=== PATIENT | male | born 1990 | race Caucasian/White ===

== ENCOUNTER 2019-08-02 13:42 | Emergency (ER) | payer OTHER, SELFPAY ==
[2019-08-02 14:35] VITALS: BP 132/78; PULSE 118; RESP 18; TEMP 38.8; O2SAT 96
--- NOTE | 2019-08-02 14:50 | ED.GENADULT ---
HPI - General Adult General Chief complaint: Upper Respiratory Infection Stated complaint: Chills/Body aches/Fever Time Seen by Provider: 08/02/19 14:53 Source: patient and RN notes reviewed Mode of arrival: ambulatory Limitations: no limitations History of Present Illness HPI narrative: This patient had onset of a cough which is productive of green phlegm with a fever up to 102 at home today. He is taken Tylenol brings it down but then goes back up again. He is had a sore throat. He is not had any ear pain. Has had no nasal drainage no drainage from the ears. He has had no rashes. Is been no nausea, no vomiting, no diarrhea. He has had no hematuria, no dysuria, no pyuria. He has had no rashes. He has had exposure to his and daughter last week who had strep throat and her treated and now better. He would like to be tested for influenza. He has not been traveling. Related Data Home Medications Medication Instructions Recorded Confirmed albuterol sulfate 90 mcg/actuation 2 puff INHALATION Q4-6H PRN gm 05/21/19 08/02/19 aerosol inhaler Allergies Allergy/AdvReac Type Severity Reaction Status Date / Time Penicillins Allergy Unknown Anaphylaxis Verified 04/24/19 09:56 Review of Systems Review of Systems: Narrative: CONSTITUTIONAL: Denies fever, chills, or sweats. Noncontributory except as pertains to the past medical history and history of present illness. EYES: Denies visual changes, redness, or discharge. ENT: Denies rhinorrhea, congestion, sore throat, or otalgia. CARDIOVASCULAR: Denies chest pain, palpitations, or edema. RESPIRATORY: Denies cough or dyspnea. GASTROINTESTINAL: Denies abdominal pain, nausea, vomiting, or diarrhea. GENITOURINARY: Denies dysuria or hematuria. SKIN: Denies rash or itching. MUSCULOSKELETAL: Denies back pain, joint pain, or myalgia. NEUROLOGIC: Denies headache, numbness, or weakness. PSYCHIATRIC: Denies anxiety or depression. [facility] Family History Family History (Updated 04/23/19 @ 13:28 by DOCTOR UNKNOWN) Mother Patient's mother is in good health Father Patient's father is in good health Grandparent Family history of chronic obstructive pulmonary disease Family history of lung cancer, Onset Age: 78 Family history of malignant neoplasm of breast in first degree relative, Onset Age: 78 Social History Social History Smoking status: Light tobacco smoker Alcohol intake: current Comments At time of signature, I have reviewed and agree with nursing past medical, surgical, social, and family history.Please see nursing chart for further information. There is no relevant family history pertinent to the presenting complaint. Exam Narrative: Exam Narrative: GENERAL: Well-appearing, well-nourished, and in no acute distress. HEAD: Normocephalic, atraumatic. EYES: PERRLA and EOMI. EARS: TM's clear bilaterally and the canals are clear. NOSE: Nares clear, no rhinorrhea or epistaxis. THROAT:Mucous membranes moist.Oropharynx is erythematous with no exudates present. NECK: Supple. No adenopathy of the neck, supraclavicular, axillary, or inguinal areas. RESPIRATORY: No respiratory distress. Airway patent. Respirations non-labored. Patient has rhonchi in the upper and in the midlung salvador but not the bases. There are no wheezes, no rales, no retractions, no use of accessory muscle respirations. Patient's not cyanotic and not dyspneic. Pulse ox on room air is 96% current temperature is 102.1. HEART: Regular rate and rhythm. No murmur heard. Normal peripheral pulses. ABDOMEN: Soft, nontender, nondistended, normal active bowel sounds.No masses. No rebound or guarding, No organomegaly. There is no CVA pain. No pain McBurney's point. The patient has a negative Ferraro sign and negative Rovsing sign. There are no pulsatile masses no audible bruits. EXTREMITIES: No clubbing/cyanosis/ edema.Normal strength & range of motion. SKIN: Warm, dry.Normal color. No skin pema
== END 2019-08-02 15:15 | disposition home or self-care (01) ==
PROVIDERS: Emergency Provider Family Medicine; PCP Physician Assistant
DX: J02.9 Acute pharyngitis, unspecified (principal); F17.200 Nicotine dependence, unspecified, uncomplicated; J45.909 Unspecified asthma, uncomplicated
CPT/HCPCS: 87081; 87804; 87880; 99213; G0463

== ENCOUNTER 2021-07-14 00:34 | Day surgery (SDC) | payer OTHER, SELFPAY ==
--- NOTE | 2021-07-08 15:46 | PM.SD2 ---
Same Day Admit/Disch: HPI History of Present Illness Chief complaint: Incarcerated and Umbilical Hernia Narrative: Marques Delaney is a 31 year old male Who has noticed a bulge at the umbilical area for the last 2 years. He has some mild discomfort associated with this. Occasionally it will protrude more and hurt. This has been happening more frequently especially in the last 3 months. Patient has lost 50 lb since August of 2020. He also has a history of vaping and asthma. He was seen in the office and is taken to surgery now for umbilical hernia repair with mesh. [facility] Past Medical History Medical History Acute viral syndrome Allergic dermatitis due to poison pedro BMI 29.0-29.9,adult Encounter for wellness examination in adult Intermittent palpitations Post-viral cough syndrome Umbilical hernia without obstruction or gangrene Vaping nicotine dependence, non-tobacco product Family History Family History Mother Patient's mother is in good health Father Patient's father is in good health Grandparent Family history of chronic obstructive pulmonary disease Family history of lung cancer, Onset Age: 78 Family history of malignant neoplasm of breast in first degree relative, Onset Age: 78 Social History Social History Years smoked: 1 Smoking status: Former smoker Tobacco type: cigarettes Smoking end date: 07/02/11 Alcohol intake: never Substance use: never Substance use type: does not use Living arrangements: with family Spiritual care concerns: No Same Day Admit/Disch: Med Pre-admit Medications Home Medications Medication Instructions Recorded Confirmed Type albuterol sulfate 90 mcg/actuation 2 puff INHALATION Q4-6H PRN gm 05/21/19 07/14/21 History aerosol inhaler ascorbic acid (vitamin C) [Vitamin 500 mg PO DAILY 07/12/21 07/14/21 History C] cholecalciferol (vitamin D3) 50 mcg PO DAILY 07/12/21 07/14/21 History [Vitamin D3] omeprazole 40 mg PO DAILY 07/12/21 07/14/21 History zinc 50 mg PO DAILY 07/12/21 07/14/21 History hydrocodone-acetaminophen 1 - 2 tablet PO Q6H PRN #20 tablet 07/14/21 Rx ketorolac 10 mg PO Q6H 4 Days #16 tablet 07/14/21 Rx Exam Const: General: comfortable, no acute distress, alert and awake HENMT: Head: normocephalic and atraumatic Mouth: Yes Normal oral and palatal mucosa present Eyes: Conjunctivae: conjunctivae normal Pupils: Equal, round and reactive pupils present EOM: EOMs intact bilaterally Neck: Neck: normal visual inspection, no lymphadenopathy and nontender Resp: Effort & Inspection: normal respiratory effort Auscultation: clear to auscultation bilaterally Cardio: Rate: regular rate Rhythm: regular rhythm Heart sounds: no gallops, no murmurs and no rubs GI: Inspection: non-distended, no scars and visible herniation ( Umbilical, dusky overlying skin) GI Palp: Yes Soft to palpation, Yes Tenderness to palpation present (GI), No Hepatomegaly present, No Splenomegaly present and Yes Hernia present ( chronically incarcerated, Tender when try to reduce) Auscultation: normal bowel sounds Skin: Lesions: no lesions Rashes: no rashes Neuro: General: no focal motor deficits and CN's II-XI intact bilaterally Cranial nerves: Yes Equal, round and reactive pupils present, Yes Bilaterally intact EOM present, Yes facial symmetry and Yes Midline tongue present Speech: normal speech Motor exam (neuro): 5/5 motor strength present throughout and Motor abnormalities not present Extrem: General: no clubbing, cyanosis or edema and edema Psych: Affect: normal affect Thought process: Normal thought process present Insight: Good insight present (Psych) DS: Summary Time Spent with Patient Time attestation: Total time spent providing and/or coordinating discharge services: WERO
[2021-07-12 11:47] VITALS: BMI 31.5
--- NOTE | 2021-07-12 11:55 | PC.NURSE ---
Report to the Outpatient Waiting Room, entrance under the green pavilion located off [facility], at time 1000 on date 07/14/21. OR Time: 1200. - You will be asked a series of questions to screen for COVID 19 for your protection. - A mask is required within the hospital. - No visitors are allowed at this time. Preoperative COVID Testing Requirements: No COVID Test needed if: (proof is required; if not received patient will have Rapid Test prior to entry) - Patient has received COVID Vaccine at least 14 days prior to procedure date or - Patient has positive COVID test result within last 90 days of surgery date. COVID Test needed if above criteria is not met Patients may have clear liquids (water, carbonated beverages, clear teas, apple juice) until 3 hours prior to surgery with a maximum of 20 ounces. - No food from midnight until time of surgery Take the following medications with a SIP of water the morning of surgery: INHALER (IF NEEDED) Medications to discontinue per physician: VITAMINS/SUPPLEMENTS Date to take last dose: NO MORE UNTIL AFTER SURGERY Please no make-up, nail hebrew, hairspray, perfume, deodorant, or body powder the day of surgery. No jewelry (including any body piercings) or valuables the day of surgery, leave them at home. Please take a shower or bath the night before, or the morning of, surgery with an antibacterial soap. Wear comfortable, loose fitting clothing. HIBICLENS SHOWER - Jewelry must be removed prior to entering the operating room. Rings and piercings that are not removed may be cut off. - The hospital will not accept responsibility for valuables. - Please leave all valuables, including medications, at home the day of surgery. If you are going home after surgery, a licensed driver/sales workers must drive you home. - NO public transportation without another adult. - We recommend that an adult stay with you for 24 hours following discharge. - We also recommend that you do not drive, make important decision, drink alcoholic beverages, or take any drugs that were not prescribed by your health care provider for at least 24 hours after your discharge time. Follow any additional instructions given to you from your surgeon. Telephone instructions given to MONA CHURCHILL and asked if any additional questions and then verbalized understanding. Patient advised to call surgeon office or pre surgery nurse liaison [phone] if any additional questions.
--- NOTE | 2021-07-14 10:14 | P.PNAN_ITS ---
Anes - Initial Pre Proc Eval Procedure: Operation Date: 07/14/21 12:00 Proposed Procedures p Incarcerated Umbilical Hernia Repair with Mesh - Ino Alcocer MD Date/Time: 07/14/21 10:14 Surgeon: Ino Alcocer MD Pre Op Diagnosis: Incarcerated and Umbilical Hernia Patient Data Age: 31 Gender: M Height: 1.78 m Weight: 101 kg Allergies Allergy/AdvReac Type Severity Reaction Status Date / Time Penicillins Allergy Severe Anaphylaxis Verified 07/14/21 10:11 Home Medications Medication Instructions Recorded Confirmed Type albuterol sulfate 90 mcg/actuation 2 puff INHALATION Q4-6H PRN gm 05/21/19 07/12/21 History aerosol inhaler ascorbic acid (vitamin C) [Vitamin 500 mg PO DAILY 07/12/21 07/12/21 History C] cholecalciferol (vitamin D3) 50 mcg PO DAILY 07/12/21 07/12/21 History [Vitamin D3] omeprazole 40 mg PO DAILY 07/12/21 07/12/21 History zinc 50 mg PO DAILY 07/12/21 07/12/21 History Patient hx anesthesia problems: none Family hx anesthesia problems: none Results Review: All pre-operative results and documents have been reviewed as part of the pre-operative evaluation. [facility] Past Medical History Medical History Acute viral syndrome Allergic dermatitis due to poison pedro BMI 29.0-29.9,adult Encounter for wellness examination in adult Intermittent palpitations Post-viral cough syndrome Umbilical hernia without obstruction or gangrene Vaping nicotine dependence, non-tobacco product Family History Family History Mother Patient's mother is in good health Father Patient's father is in good health Grandparent Family history of chronic obstructive pulmonary disease Family history of lung cancer, Onset Age: 78 Family history of malignant neoplasm of breast in first degree relative, Onset Age: 78 Social History Social History Years smoked: 1 Smoking status: Former smoker Tobacco type: cigarettes Smoking end date: 07/02/11 Alcohol intake: never Substance use: never Substance use type: does not use Living arrangements: with family Spiritual care concerns: No Anes - Eval Final PreProcedure Day of Procedure 07/14/21 10:14 Patient weight: obese Heart: regular rate and rhythm Lungs: clear to auscultation Airway: Mallampati scale class 1 Neurological: alert and oriented Last oral intake: >/= 8 hours ASA classification: II Emergent: no Anesthetic plan: proceed Anesthesia type and monitoring: general GIVS and standard monitoring Results Review: All pre-operative results and documents have been reviewed as part of the pre-operative evaluation. Informed Consent: The patient's anesthetic plan and its attendant risks and benefits were discussed with the patient/family/POA. Questions were solicited and answers provided to the satisfaction of the patient/family/POA.
[2021-07-14] MEDS: ACETAMINOPHEN 500 MG TABLET 1000 MG PO (10:30)
[2021-07-14] MEDS: LACTATED RINGERS 1,000 ML 30 ML IV CONT (10:30)
[2021-07-14] MEDS: KETOROLAC 15 MG/ML VIAL (*BKC) IV PUSH (10:33)
[2021-07-14 10:42] VITALS: BP 125/82; PULSE 85; RESP 16; TEMP 36.8; O2SAT 97
--- NOTE | 2021-07-14 10:55 | WPDHPUPDATE1 ---
History and Physical Update Update Date/Time: 07/14/21 10:55 History and Physical has been reviewed, including an updated exam of the patient. There are NO changes in the patient's condition. Risks, benefits, and alternatives have been discussed and questions answered. Patient agrees to proceed with procedure.
[2021-07-14] MEDS: ceFAZolin 2 GM/D5W 50 ML 2 GM/50 ML BAG IVPB (12:01)
[2021-07-14] MEDS: BUPIVACAINE HCL 0.5% PF 30 ML VIAL INFILTRATE (12:21)
[2021-07-14 13:33] VITALS: BP 113/70; PULSE 70; RESP 16; O2SAT 100
--- NOTE | 2021-07-14 13:46 | P.OP_ITS ---
Procedure Note - Detailed Date of Procedure 07/14/21 Pre-op Diagnosis Chronically Incarcerated Umbilical Hernia Post-op Diagnosis same Procedure Performed Umbilical hernia repair with 6 cm PV p.m. underlay mesh Surgeon Ino Alcocer MD Gum Remover Kathleen Yu [facility] Anesthesia MAC and local (0.5% Marcaine with epinephrine) Indications Patient has a sizable umbilical bulge which is occasionally painful. He was seen in the office and found to have a chronically incarcerated umbilical hernia. He is taken to surgery now for repair with underlay mesh Findings Omentum chronically incarcerated in the hernia sac. No bowel involvement. Hernia defect was 1.5 cm diameter. Description of Procedure Patient was taken to surgery and IV sedation was administered. The abdomen is prepped and draped. The proposed incision was marked along the lower margin of the umbilicus. Local anesthetic was infiltrated into the area of the anticipated incision and in the deeper subcutaneous tissues. Incision was made dissection was carried down through the skin. The hernia sac was easily seen. It was carefully dissected free from the subcutaneous as well as the umbilical skin. We dissected down around the herniated contents to the neck of the hernia. There was a lot of herniated omentum in the hernia sac relative to the size of the defect. Once the neck of the hernia was well delineated, I divided the hernia sac at its neck and removed the hernia sac. The sac was inspected and then discarded. The herniated omentum was then placed back into the abdomen in its entirety. I then undermined the subcutaneous around the hernia defect. Some thinned fascia and sac were debrided from the edges of the hernia defect. Additional local was in full traded into the fascia all around the hernia defect. The 6 cm PV p.m. mesh was chosen. It was folded and placed in the defect. It was positioned symmetrically. Cranial and caudal transfascial sutures of 0 Ethibond were then placed. The sutures were placed in such a fashion as to advance the edges of the hernia defect towards 1 another. Once the sutures were tied, they had the desired effect. I then put right and left lateral transfascial sutures in place as well. I then closed the hernia defect with [id number] mattress sutures of 0 Ethibond. The repair looked good. There was minimal tension. I infiltrated additional local all around the repair into the fascia. Loose connective tissue was debrided from the umbilical skin. I then sutured the umbilical skin to the fascia with 3-0 Vicryl suture. The deeper subcutaneous tissues were closed with 3-0 Vicryl suture. The skin was loosely approximated with 4-0 Vicryl subcuticular interrupted skin sutures. A running 4-0 Monocryl skin suture was then placed. The wound was dressed with Exofin surgical adhesive. The patient was awakened and taken to outpatient surgery in good condition. Sponge needle counts were correct x2. Implants 6 cm PVP M mesh Estimated Blood Loss -5 Drains No Packing No Pathology none sent Complications No immediate complications Condition stable Disposition same day
[2021-07-14 14:00] VITALS: BP 107/61; PULSE 73; RESP 16; O2SAT 100
[2021-07-14 14:30] VITALS: BP 113/74; PULSE 78; RESP 16; O2SAT 100
[2021-07-14 14:50] VITALS: BP 111/74; PULSE 61; RESP 16; O2SAT 100
[2021-07-14] MEDS: PROPARACAINE HCL 0.5% 15 ML OPHTH SOLN 1 DROP EACH EYE (14:55)
[2021-07-14] MEDS: DICLOFENAC SODIUM 0.1% OPHTH SOLN 2.5 ML BOTTLE 1 DROP EACH EYE (14:56)
--- NOTE | 2021-07-14 15:21 | SUR.PHASEII ---
delay for discharge due to needing the printed prescription signed
--- NOTE | 2021-07-14 16:19 | SUR.PHASEII ---
at 1345 pt was c/o right eye pain and redness md worthy was called and informed and he said to order the corneal abrasion protocol.
== END 2021-07-14 15:21 | disposition home or self-care (01) ==
PROVIDERS: PCP Family Medicine; Visit Provider Surgery
PROC: (CPT 49587; principal; 2021-07-14 12:00)
DX: K42.0 Umbilical hernia with obstruction, without gangrene (principal); Z79.51 Long term (current) use of inhaled steroids; R05.8 Other specified cough; Z87.891 Personal history of nicotine dependence; E66.9 Obesity, unspecified; Z68.31 Body mass index [BMI] 31.0-31.9, adult
CPT/HCPCS: 49587; A9270; C1781; J0690; J1885; J2250; J2704; J3010; J7120

== ENCOUNTER 2021-11-06 12:39 | Emergency (ER) | payer OTHER, SELFPAY ==
--- NOTE | 2021-11-06 14:07 | ED.GENADULT ---
HPI - General Adult General Chief complaint: Upper Respiratory Infection Stated complaint: cough Source: patient Mode of arrival: ambulatory Limitations: no limitations History of Present Illness HPI narrative: Patient presents for evaluation of sinus symptoms for the past six days. He reports sinus congestion, mucopurulent discharge from nares, sore throat, occasional productive cough and bilateral otalgia. No fever, chills, nausea, vomiting, diarrhea. He has been taking Sudafed with minimal improvement in his symptoms thereafter. He does not smoke. His and daughter were here being evaluated for sick symptoms. He has receive COVID vaccination. No additional complaints or concerns. Related Data Allergies Allergy/AdvReac Type Severity Reaction Status Date / Time Penicillins Allergy Severe Anaphylaxis Verified 11/06/21 13:17 Review of Systems Review of Systems: CONSTITUTIONAL: Denies fever, chills, or sweats. EYES: Denies visual changes, redness, or discharge. ENT: Reports sinus congestion, thick mucopurulent discharge from bilateral naris, bilateral otalgia and sore throat CARDIOVASCULAR: Denies chest pain, palpitations, or edema. RESPIRATORY: Reports cough. Denies dyspnea. GASTROINTESTINAL: Denies abdominal pain, nausea, vomiting, or diarrhea. GENITOURINARY: Denies dysuria or hematuria. SKIN: Denies rash or itching. MUSCULOSKELETAL: Denies back pain, joint pain, or myalgia. NEUROLOGIC: Denies headache, numbness, dizziness, or weakness. PSYCHIATRIC: Denies anxiety or depression. [facility] Past Medical History Medical History Acute viral syndrome Allergic dermatitis due to poison pedro BMI 29.0-29.9,adult Encounter for wellness examination in adult Intermittent palpitations Post-viral cough syndrome Umbilical hernia without obstruction or gangrene Vaping nicotine dependence, non-tobacco product Surgical History Surgical History H/O umbilical hernia repair 07/14/21 Family History Family History Mother Patient's mother is in good health Father Patient's father is in good health Grandparent Family history of chronic obstructive pulmonary disease Family history of lung cancer, Onset Age: 78 Family history of malignant neoplasm of breast in first degree relative, Onset Age: 78 Social History Social History Years smoked: 1 Smoking status: Former smoker Tobacco type: cigarettes Smoking end date: 07/02/11 Alcohol intake: never Substance use: never Substance use type: does not use Spiritual care concerns: No Exam Narrative: GENERAL: Well-appearing, well-nourished, and in no acute distress. HEAD: Normocephalic, atraumatic. EYES: PERRLA and EOMI. ENT: Nares clear, no rhinorrhea or epistaxis. Mucous membranes moist. Oropharynx without tonsillar hypertrophy exudate or other lesions. Bilateral TMs pearly nix nonbulging. Bilateral frontal and maxillary sinus tenderness NECK: Supple. No adenopathy or masses. No carotid bruits or JVD CHEST: Clear to auscultation. No respiratory distress. No wheezes rales or rhonchi HEART: Regular rate and rhythm. No murmur heard. Normal peripheral pulses. ABDOMEN: Soft, nontender, nondistended, normal active bowel sounds. EXTREMITIES: Normal range of motion. No edema. SKIN: Warm, dry, no rash. NEURO: No focal deficits. Alert and oriented x3. PSYCH: Normal mood and affect. Course Course Emergency Course: This is a 31-year-old male who present with complaints of sinus congestion and mucopurulent discharge from his nares. Based on presence of mucopurulent discharge, he meets criteria for ABRS. He was not given amoxicillin due to anaphylaxis with PCN. Will dc with doxycycline and flonase. He may continue to use
== END 2021-11-06 14:09 | disposition home or self-care (01) ==
PROVIDERS: Emergency Provider Nurse Practitioner; PCP Family Medicine
DX: J32.9 Chronic sinusitis, unspecified (principal); B96.89 Other specified bacterial agents as the cause of diseases classified elsewhere; Z87.891 Personal history of nicotine dependence
CPT/HCPCS: 99213; G0463